=== PATIENT | female | born 1955 | race African-American/Black ===

== ENCOUNTER 2023-08-07 14:32 | Outpatient (CLI) | payer OTHER, SELFPAY | END 2023-08-07 14:33 | disposition home or self-care (01) | LOC: ANHAUDIO 14:33 | DX: H90.3 Sensorineural hearing loss, bilateral (principal); H61.23 Impacted cerumen, bilateral | CPT/HCPCS: 92557; 92567 ==

== ENCOUNTER 2023-11-27 09:30 | Outpatient (RCR) | payer OTHER, SELFPAY | END 2023-11-27 23:59 | disposition home or self-care (01) | LOC: ANHAUDIO 09:30 | DX: Z46.1 Encounter for fitting and adjustment of hearing aid (principal) | CPT/HCPCS: 99199; V5261 ==